=== PATIENT | female | born 1960 | race African-American/Black ===

== ENCOUNTER 2018-10-30 08:55 | Emergency (ER) | payer BC, OTHER, MEDICAID ==
[2018-10-30] MEDS ORDERED: IPRATROPIUM/ALBUTEROL 0.5-2.5 MG/3 ML AMPUL NEB ONE (10:04)
[2018-10-30 10:22] LABS: A TYPE INFLUENZA AG NEGATIVE (NEGATIVE); B INFLUENZA AG NEGATIVE (NEGATIVE)
--- NOTE | 2018-10-30 10:34 | RADIOLOGY REPORT (SQ) ---
EXAM DESCRIPTION: CHEST 2 VIEWS COMPLETED DATE/TIME: 10/30/2018 9:52 am REASON FOR STUDY: sob COMPARISON: None. EXAM PARAMETERS: NUMBER OF VIEWS: two views TECHNIQUE: Digital Frontal and Lateral radiographic views of the chest acquired. RADIATION DOSE: NA LIMITATIONS: none FINDINGS: LUNGS AND PLEURA: No opacities, masses or pneumothorax. No pleural effusion. MEDIASTINUM AND HILAR STRUCTURES: No masses or contour abnormalities. HEART AND VASCULAR STRUCTURES: Heart normal size. No evidence for failure. BONES: No acute findings. HARDWARE: None in the chest. OTHER: No other significant finding. IMPRESSION: NO ACUTE RADIOGRAPHIC FINDING IN THE CHEST. TECHNICAL DOCUMENTATION: JOB ID: [id number] [employer]- All Rights Reserved Reading location - IP/workstation name: [email or web address]
[2018-10-30] MEDS ORDERED: ALBUTEROL SULFATE HFA (90 MCG/PUFF) 8 GM MDI (1 MDI/ER DISP) IH ONE (11:06)
[2018-10-30] MEDS ORDERED: BENZONATATE 100 MG CAPSULE PO ONE (11:06)
--- NOTE | 2018-10-30 11:08 | ER Document Report ---
ED General - General Chief Complaint: Cold Symptoms Stated Complaint: COUGH/CONGESTION Time Seen by Provider: 10/30/18 09:10 TRAVEL OUTSIDE OF THE [place] IN LAST 30 DAYS: No - HPI Patient complains to provider of: Cough congestion Notes: Patient coming in for cough congestion ongoing for approximately 3-4 days. Patient is visiting from [place] patient was supposed to return however states that her grandkids got sick and now she is sick. Patient denies a history of COPD emphysema patient states she does not smoke no fevers at home did receive a flu vaccination this year. Patient otherwise is speaking complete sentences no signs of any obvious distress upon my evaluation. States yellow sputum production in the last 24 hours. - Related Data Allergies/Adverse Reactions: doxycycline Allergy (Verified 10/30/18 08:58) levofloxacin [From Levaquin] Allergy (Verified 10/30/18 08:58) Penicillins Allergy (Verified 10/30/18 08:58) Sulfa (Sulfonamide Antibiotics) Allergy (Verified 10/30/18 08:58) Past Medical History - Social History Smoking Status: Unknown if Ever Smoked Family History: Reviewed & Not Pertinent Patient has suicidal ideation: No Patient has homicidal ideation: No - Past Medical History Cardiac Medical History: Reports: Hx Hypercholesterolemia, Hx Hypertension Endocrine Medical History: Reports: Hx Diabetes Mellitus Type 2 Renal/ Medical History: Denies: Hx Peritoneal Dialysis Review of Systems - Review of Systems Constitutional: No symptoms reported EENT: No symptoms reported Cardiovascular: No symptoms reported Respiratory: Cough, Short of breath, Sputum Gastrointestinal: No symptoms reported Genitourinary: No symptoms reported Female Genitourinary: No symptoms reported Musculoskeletal: No symptoms reported Skin: No symptoms reported Hematologic/Lymphatic: No symptoms reported Neurological/Psychological: No symptoms reported -: Yes All other systems reviewed and negative Physical Exam - Vital signs Vitals: Temp Pulse Resp BP Pulse Ox 98.6 F 106 H 18 146/66 H 99 10/30/18 09:00 10/30/18 09:00 10/30/18 09:00 10/30/18 09:00 10/30/18 09:00 Interpretation: Normal - General General appearance: Appears well, Alert - HEENT Head: Normocephalic, Atraumatic Eyes: Normal Pupils: PERRL - Respiratory Respiratory status: No respiratory distress Chest status: Nontender Breath sounds: Normal Chest palpation: Normal - Cardiovascular Rhythm: Regular Heart sounds: Normal auscultation Murmur: No - Abdominal Inspection: Normal Distension: No distension Bowel sounds: Normal Tenderness: Nontender Organomegaly: No organomegaly - Back Back: Normal, Nontender - Extremities General upper extremity: Normal inspection, Nontender, Normal color, Normal ROM, Normal temperature General lower extremity: Normal inspection, Nontender, Normal color, Normal ROM, Normal temperature, Normal weight bearing. No: Guicho's sign - Neurological Neuro grossly intact: Yes Cognition: Normal Orientation: AAOx4 [place] Coma Scale Eye Opening: Spontaneous [place] Coma Scale Verbal: Oriented Daph[place] Coma Scale Motor: Obeys Commands [place] Coma Scale Total: 15 Speech: Normal Motor strength normal: LUE, RUE, LLE, RLE Sensory: Normal - Psychological Associated symptoms: Normal affect, Normal mood - Skin Skin Temperature: Warm Skin Moisture: Dry Skin Color: Normal Course - Re-evaluation Re-evalutation: 10/30/18 14:56 Patient requesting a breathing treatment was were performed. After this patient states feeling much better. Patient also requesting Tessalon Perles was also given to the patient. Flu swab and chest x-ray is negative no signs of any bacterial infectious etiology that would require antibiotics more likely viral etiology patient is to drink plenty of fluids follow-up with your primary care physician patient will be discharged home. - Vital Signs Vital signs: Temp Pulse Resp BP Pulse Ox 98.9 F 95 18 141/81 H 98 10/30/18 11:14 10/30/18 11:14 10/30/18 11:14 10/30/18 11:14 10/30/18 11:14 Discharge - Discharge Clinical Impression: Viral URI with cough Condition: Stable Disposition: HOME, SELF-CARE Instructions: Upper Respiratory Illness ([facility]) Additional Instructions: Your chest x-ray today and flu swabs are negative there is no signs of pneumonia no signs of any physical examination that she needs antibiotic at this time. I would recommend using the inhaler that we gave you here in ER 2 puffs every 4 hours as needed for shortness of breath he may try Tessalon Perles as prescribed to help out with your cough would also recommend [id number] cough medication or the use of natural honey return to ER symptoms worsen. Prescriptions: Benzonatate [Tessalon Perle 100 mg Capsule] 100 mg PO Q8HP PRN #40 cap PRN Reason: Forms: Return to Work
[2018-10-30 11:18] VITALS: BP 141/81
== END 2018-10-30 11:18 | disposition home or self-care (01) ==
LOC: ER 08:55
DX: J06.9 Acute upper respiratory infection, unspecified (principal); B97.89 Other viral agents as the cause of diseases classified elsewhere; R05 Cough; R06.02 Shortness of breath; I10 Essential (primary) hypertension; E11.9 Type 2 diabetes mellitus without complications; Z88.1 Allergy status to other antibiotic agents; Z88.0 Allergy status to penicillin; Z88.2 Allergy status to sulfonamides
CPT/HCPCS: 94640; 99283; 87804; 71046; J3490; J7620

== ENCOUNTER 2019-02-27 09:07 | Emergency (ER) | payer BC, OTHER, MEDICAID ==
--- NOTE | 2019-02-27 09:43 | ER Document Report ---
ED Medical Screen (RME) - General Chief Complaint: Cough Stated Complaint: COUGH Time Seen by Provider: 02/27/19 09:29 Mode of Arrival: Ambulatory Information source: Patient Notes: Patient presents with a 2-week history of cough congestion with chest pain and upper back pain with coughing. Patient does complain of some shortness of breath. Patient denies any fevers. Patient initially states she is only had symptoms for a week and then when patient was confronted with the fact that she received a prescription for azithromycin a week ago then patient states that her symptoms have been for 2 weeks. But states that she did not get the prescription filled I have greeted and performed a rapid initial assessment of this patient. A comprehensive ED assessment and evaluation of the patient, analysis of test results and completion of the medical decision making process will be conducted by additional ED providers. TRAVEL OUTSIDE OF THE [place] IN LAST 30 DAYS: No - Related Data Allergies/Adverse Reactions: doxycycline Allergy (Verified 02/27/19 09:11) levofloxacin [From Levaquin] Allergy (Verified 02/27/19 09:11) Penicillins Allergy (Verified 02/27/19 09:11) Sulfa (Sulfonamide Antibiotics) Allergy (Verified 02/27/19 09:11) Past Medical History - Past Medical History Cardiac Medical History: Reports: Hx Hypercholesterolemia, Hx Hypertension Endocrine Medical History: Reports: Hx Diabetes Mellitus Type 2 Renal/ Medical History: Denies: Hx Peritoneal Dialysis Physical Exam - Vital signs Vitals: Temp Pulse Resp BP Pulse Ox 98.2 F 87 16 143/73 H 98 02/27/19 09:23 02/27/19 09:23 02/27/19 09:23 02/27/19 09:23 02/27/19 09:23 - Respiratory Respiratory status: No respiratory distress Chest status: Pain with cough Breath sounds: Nonproductive cough. No: Rales, Rhonchi, Stridor, Wheezing Course - Vital Signs Vital signs: Temp Pulse Resp BP Pulse Ox 98.2 F 87 16 143/73 H 98 02/27/19 09:23 02/27/19 09:23 02/27/19 09:23 02/27/19 09:23 02/27/19 09:23
--- NOTE | 2019-02-27 10:33 | RADIOLOGY REPORT (SQ) ---
EXAM DESCRIPTION: CHEST 2 VIEWS COMPLETED DATE/TIME: 02/27/2019 10:13 am REASON FOR STUDY: cough, cp/upper back pain COMPARISON: 10/30/2018 EXAM PARAMETERS: NUMBER OF VIEWS: two views TECHNIQUE: Digital Frontal and Lateral radiographic views of the chest acquired. RADIATION DOSE: NA LIMITATIONS: none FINDINGS: LUNGS AND PLEURA: No opacities, masses or pneumothorax. No pleural effusion. MEDIASTINUM AND HILAR STRUCTURES: No masses or contour abnormalities. HEART AND VASCULAR STRUCTURES: Heart normal size. No evidence for failure. BONES: No acute findings. HARDWARE: None in the chest. OTHER: No other significant finding. IMPRESSION: NO ACUTE RADIOGRAPHIC FINDING IN THE CHEST. TECHNICAL DOCUMENTATION: JOB ID: [id number] [employer]- All Rights Reserved Reading location - IP/workstation name: [email or web address]
--- NOTE | 2019-02-27 11:00 | ER Document Report ---
HPI - HPI Patient complains to provider of: Cough, congestion, sinus pressure Time Seen by Provider: 02/27/19 09:29 Pain Level: 5 Context: Patient is a 59-year-old female presents to the emergency department for generalized URI symptoms for the last 2 weeks. Patient states for the last 4 days she has noticed some increased sinus pain and pressure. States she has pain in her forehead and in maxillary sinus area. Patient states she does have some minor chest pain but only when she coughs. Patient's denying any chest pain currently or when she breathes. States when you push in the center of her chest it hurts more. Patient states she has been using Nasacort at home without relief. Patient states she feels as though her ears are "clogged." Patient states she called her primary care provider who inevitably called in a prescription for antibiotics to [facility]. Patient states she was on aware that there were antibiotics at [facility] until today. States she just decided to come to the emergency department instead. Past medical history: Hypertension, diabetes, hyperlipidemia Medications: Norvasc, HCTZ, metformin Allergies: Penicillin, doxycycline, levofloxacin, sulfa - CONSTITUTIONAL Constitutional: REPORTS: Chills. DENIES: Fever - RESPIRATORY Respiratory: REPORTS: Coughing - DERM Skin Color: Normal Past Medical History - General Information source: Patient - Social History Smoking Status: Unknown if Ever Smoked Family History: Reviewed & Not Pertinent Patient has suicidal ideation: No Patient has homicidal ideation: No - Past Medical History Cardiac Medical History: Reports: Hx Hypercholesterolemia, Hx Hypertension Endocrine Medical History: Reports: Hx Diabetes Mellitus Type 2 Renal/ Medical History: Denies: Hx Peritoneal Dialysis Vertical Provider Document - CONSTITUTIONAL Agree With Documented VS: Yes Notes: GENERAL: Alert, interacts well. No acute distress. HEAD: Normocephalic, atraumatic. Frontal and maxillary sinus tenderness noted EYES: Pupils equal, round, and reactive to light. Extraocular movements intact. ENT: Oral mucosa moist, tongue midline. Nares patent, swollen turbinates bilaterally, TM's on seen due to bilateral cerumen impactions. Pharynx within normal limits no palatal petechiae noted NECK: Full range of motion. Supple. Trachea midline. No lymphadenopathy appreciated LUNGS: Clear to auscultation bilaterally, no wheezes, rales, or rhonchi. No respiratory distress. HEART: Regular rate and rhythm. No murmur chest: No crepitus felt, no erythema ecchymosis noted anterior chest wall. Reproducible pain in the center of her chest. ABDOMEN: Soft, non-tender. Non-distended. Bowel sounds present in all 4 quadrants. EXTREMITIES: Moves all 4 extremities spontaneously. No edema, normal radial and dorsalis pedis pulses bilaterally. No cyanosis. BACK: no cervical, thoracic, lumbar midline tenderness. No saddle anesthesia, normal distal neurovascular exam. NEUROLOGICAL: Alert and oriented x3. Normal speech. cranial nerves II through XII grossly intact PSYCH: Normal affect, normal mood. SKIN: Warm, dry, normal turgor. No rashes or lesions noted. - INFECTION CONTROL TRAVEL OUTSIDE OF THE [place] IN LAST 30 DAYS: No Course - Re-evaluation Re-evalutation: 02/27/19 11:04 Patient voices allergies to multiple antibiotics. Up-to-date I am placing patient on a higher generation cephalosporin in order to treat her potential bacterial sinusitis. Due to the length of her symptoms, the fact that she now has frontal maxillary sinus tenderness bacterial sinusitis is my working diagnosis. Patient stable for discharge - Vital Signs Vital signs: Temp Pulse Resp BP Pulse Ox 98.2 F 87 16 143/73 H 98 02/27/19 09:23 02/27/19 09:23 02/27/19 09:23 02/27/19 09:23 02/27/19 09:23 Discharge - Discharge Clinical Impression: Sinusitis Qualifiers: Sinusitis location: maxillary Chronicity: acute Recurrence: not specified as recurrent Qualified Code(s): J01.00 - Acute maxillary sinusitis, unspecified Condition: Stable Disposition: HOME, SELF-CARE Instructions: Sinusitis ([facility]) Additional Instructions: As we discussed you have been seen and treated in the emergency department for sinusitis. Please make sure you take antibiotics as prescribed. Please also make sure he follow-up with your primary care provider in the next 24 to 48 hours. Please return to the emergency room for any other concerns. Your chest x-ray at today's visit showed no signs of pneumonia. Prescriptions: Cefixime [Suprax] 400 mg PO DAILY 7 Days capsule
[2019-02-27 11:13] VITALS: BP 128/75
== END 2019-02-27 11:31 | disposition home or self-care (01) ==
LOC: ER 09:07
DX: J01.00 Acute maxillary sinusitis, unspecified (principal); R05 Cough; R68.83 Chills (without fever); I10 Essential (primary) hypertension; E11.9 Type 2 diabetes mellitus without complications; E78.5 Hyperlipidemia, unspecified
CPT/HCPCS: 71046; 99283